=== PATIENT | female | born 1970 | race African-American/Black ===

== ENCOUNTER 2024-07-24 15:48 | Observation (INO) | payer OTHER ==
[2024-07-24 15:57] VITALS: BMI 58.2
[2024-07-24] MEDS ORDERED: predniSONE 10 MG TABLET (UD) ONE (16:21)
[2024-07-24] MEDS ORDERED: ALBUTEROL SO4 2.5/IPRATROPIUM 0.5 INH SOL 3 ML VIAL.NEB. NEB ONE (16:21)
[2024-07-24] MEDS: ALBUTEROL SO4 2.5/IPRATROPIUM 0.5 INH SOL 3 ML VIAL.NEB. NEB ONE (16:27)
[2024-07-24] MEDS ORDERED: predniSONE 20 MG TABLET (UD) ONE (16:27)
[2024-07-24] MEDS: predniSONE 20 MG TABLET (UD) PO ONE (16:27)
[2024-07-24 17:15] LABS: ABSOLUTE IMMATURE GRANULOCYTES 0.03 x10^3/uL (0.0-0.031); BASOPHILS # 0.04 x10^3/uL (0.01-0.08); EOSINOPHIL % 9.2 % (0.7-5.8); EOSINOPHILS # 0.92 x10^3/uL (0.04-0.36); HEMATOCRIT 41.2 % (34.1-44.9); MCHC 29.1 g/dl (32.2-35.5); MEAN CELL VOLUME 83.6 fl (79.4-94.8); MEAN PLT VOLUME 10.4 fl (9.4-12.3); MONOCYTE # 0.73 x10^3/uL (0.24-0.86); MONOCYTE % 7.3 % (4.7-12.5); PLATELET COUNT 207 x10^3/uL (182-369); RDW 18.9 % (12.3-16.6)
[2024-07-24] MEDS: predniSONE 10 MG TABLET (UD) PO ONE (17:27)
[2024-07-24 17:32] LABS: VENOUS BASE EXCESS 3.6 mmol/L (-2-2); VENOUS O2 SATURATION 66.9 % (70-80); VENOUS PCO2 54.3 mmHg (38-52); VENOUS PH 7.363 (7.310-7.410)
[2024-07-24 17:44] LABS: CHLORIDE 104 mmol/L (98-107); SODIUM 136 mmol/L (136-145)
[2024-07-24 17:46] LABS: ALBUMIN 3.1 g/dl (3.4-5.0); BLOOD UREA NITROGEN 11.1 mg/dL (7-18); CALCIUM 9.6 mg/dL (8.5-10.1); CO2 31 mmol/L (21-32); MAGNESIUM 2.1 mg/dL (1.8-2.4)
[2024-07-24 17:47] LABS: GLUCOSE,RANDOM 97 mg/dL (74-106)
[2024-07-24 17:49] LABS: ANION GAP 1 mmol/L (4-13); POTASSIUM 8.8 mmol/L (3.5-5.1)
[2024-07-24 17:50] LABS: CREATININE 0.7 mg/dL (0.55-1.3)
[2024-07-24 17:51] LABS: BILIRUBIN,TOTAL 0.3 mg/dL (0.2-1)
[2024-07-24 17:52] LABS: ALK PHOS 80 U/L (45-117)
[2024-07-24 17:54] LABS: N-TERMINAL BNP 56.4 pg/ml (5-125)
[2024-07-24 17:57] LABS: SGOT/AST 182 U/L (15-37); SGPT/ALT 51 U/L (13-61)
[2024-07-24] MEDS ORDERED: ALBUTEROL SO4 0.083% IH SOL 2.5 MG/3 ML VIAL.NEB. NEB ONE (18:14)
[2024-07-24] MEDS: ALBUTEROL SO4 0.083% IH SOL 2.5 MG/3 ML VIAL.NEB. NEB ONE (18:18)
[2024-07-24 19:00] LABS: POTASSIUM 3.8 mmol/L (3.5-5.1)
[2024-07-24 19:02] LABS: CALCIUM 9.7 mg/dL (8.5-10.1)
[2024-07-24 19:03] LABS: BLOOD UREA NITROGEN 11.4 mg/dL (7-18)
[2024-07-24 19:06] LABS: CREATININE 0.6 mg/dL (0.55-1.3)
[2024-07-24] MEDS ORDERED: MAGNESIUM SULFATE IN WATER 2 GM/50 ML IVPB IVPB ONE (20:08)
[2024-07-24] MEDS: MAGNESIUM SULFATE IN WATER 2 GM/50 ML IVPB IVPB ONE (20:19)
[2024-07-24] MEDS ORDERED: ALBUTEROL SO4 0.083% IH SOL 2.5 MG/3 ML VIAL.NEB. NEB PRN (21:26)
[2024-07-24] MEDS ORDERED: ATORVASTATIN CA 20 MG TABLET (FP) ONE (22:24)
[2024-07-24] MEDS ORDERED: ENOXAPARIN NA (PORCINE) 40 MG/0.4 ML DISP.SYRIN SQ ONE (22:24)
[2024-07-24] MEDS: ENOXAPARIN NA (PORCINE) 30 MG/0.3 ML DISP.SYRIN SQ SCH (22:29)
[2024-07-24] MEDS: ATORVASTATIN CA 20 MG TABLET (FP) PO SCH (22:29)
[2024-07-24] MEDS ORDERED: MONTELUKAST NA 10 MG TABLET ONE (23:41)
[2024-07-24] MEDS ORDERED: methylPREDNISolone NA SUCC 40 MG/1 ML VIAL ONE (23:41)
[2024-07-25] MEDS: MONTELUKAST NA 10 MG TABLET PO ONE (00:34)
[2024-07-25] MEDS: methylPREDNISolone NA SUCC 40 MG/1 ML VIAL IVPUSH SCH (00:35)
[2024-07-25] MEDS: BUDESONIDE/FORMETEROL FUMARATE 160/4.5 mcg INHALER IH SCH ×2 (00:54→21:41)
[2024-07-25] MEDS ORDERED: ALBUTEROL SO4 2.5/IPRATROPIUM 0.5 INH SOL 3 ML VIAL.NEB. NEB ONE (02:10)
[2024-07-25] MEDS: ALBUTEROL SO4 2.5/IPRATROPIUM 0.5 INH SOL 3 ML VIAL.NEB. NEB ONE (02:11)
[2024-07-25] MEDS: INSULIN ASPART SLIDING SCALE (NOVOLOG) 1 VIAL SQ SCH (06:26)
[2024-07-25] MEDS: ALBUTEROL SO4 2.5/IPRATROPIUM 0.5 INH SOL 3 ML VIAL.NEB. NEB SCH (07:55)
[2024-07-25] MEDS ORDERED: methylPREDNISolone NA SUCC 40 MG/1 ML VIAL IVPUSH SCH (10:00)
[2024-07-25] MEDS ORDERED: predniSONE 20 MG TABLET (UD) PO SCH (10:00)
[2024-07-25 10:10] LABS: POTASSIUM 4.6 mmol/L (3.5-5.1)
[2024-07-25 10:11] LABS: CALCIUM 10.2 mg/dL (8.5-10.1)
[2024-07-25 10:12] LABS: BLOOD UREA NITROGEN 10.3 mg/dL (7-18); MAGNESIUM 2.2 mg/dL (1.8-2.4)
[2024-07-25 10:15] LABS: CREATININE 0.7 mg/dL (0.55-1.3)
[2024-07-25] MEDS: LOSARTAN POTASSIUM 25 MG TABLET PO SCH (10:15)
[2024-07-25] MEDS: LORATADINE 10 MG TABLET PO SCH (10:16)
[2024-07-25] MEDS ORDERED: metFORMIN HCL 500 MG TABLET (FP) PO SCH (18:00)
[2024-07-25] MEDS: MONTELUKAST NA 10 MG TABLET PO SCH (21:40)
[2024-07-25] MEDS: guaiFENesin 200 MG/10 ML 10 ML UNIT-DOSE CUPS PO PRN (23:14)
[2024-07-25] MEDS: ACETAMINOPHEN 325 MG TABLET (FP) PO PRN (23:15)
[2024-07-26 08:10] LABS: POTASSIUM 4.8 mmol/L (3.5-5.1)
[2024-07-26 08:14] LABS: BLOOD UREA NITROGEN 20.9 mg/dL (7-18)
[2024-07-26 08:15] LABS: MAGNESIUM 2.4 mg/dL (1.8-2.4)
[2024-07-26 08:17] LABS: CALCIUM 10.1 mg/dL (8.5-10.1)
[2024-07-26 08:18] LABS: CREATININE 0.7 mg/dL (0.55-1.3)
[2024-07-26 11:17] VITALS: RESP 18
[2024-07-26 15:45] VITALS: BP 121/54; PULSE 81; TEMP 97.5
[2024-07-26] MEDS ORDERED: ENOXAPARIN NA (PORCINE) 40 MG/0.4 ML DISP.SYRIN SQ SCH (22:00)
== END 2024-07-26 19:22 | disposition home or self-care (01) ==
LOC: JER 15:48 → JERBED 20:12 → J4S 07-25 00:09
PROVIDERS: ADMIT Internal Medicine; ATTEND Student in an Organized Health Care Education/Training Program
PROC: 3E0F7GC Introduction of Other Therapeutic Substance into Respiratory Tract, Via Natural or Artificial Opening (ICD-10-PCS; principal; 2024-07-24)
PROC: 3E023GC Introduction of Other Therapeutic Substance into Muscle, Percutaneous Approach (ICD-10-PCS; 2024-07-24)
PROC: 3E033GC Introduction of Other Therapeutic Substance into Peripheral Vein, Percutaneous Approach (ICD-10-PCS; 2024-07-24)
DX: J96.01 Acute respiratory failure with hypoxia (principal); E66.01 Morbid (severe) obesity due to excess calories; Z86.16 Personal history of COVID-19; E11.9 Type 2 diabetes mellitus without complications; I10 Essential (primary) hypertension; R00.0 Tachycardia, unspecified; Z88.8 Allergy status to other drugs, medicaments and biological substances
CPT/HCPCS: 0241U-QW; 36415; 71045-TC-FY; 80048; 80053; 82803; 82962; 83735; 83880; 84484; 85025; 93005; 93010; 93306-TC; 94150; 94640; 96365; 96372; 96375; 99285-25; G0378

== ENCOUNTER 2024-10-27 12:35 | Emergency (ER) | payer OTHER ==
[2024-10-27] MEDS: ALBUTEROL SO4 2.5/IPRATROPIUM 0.5 INH SOL 3 ML VIAL.NEB. NEB ONE (13:15)
[2024-10-27] MEDS: DEXAMETHASONE SOD PHOSPHATE 10 MG/1 ML VIAL IVPB ONE (13:35)
[2024-10-27 13:39] VITALS: TEMP 98; BMI 54.8
[2024-10-27] MEDS: MAGNESIUM SULFATE IN WATER 2 GM/50 ML IVPB IVPB ONE (13:40)
[2024-10-27 13:47] LABS: ABSOLUTE IMMATURE GRANULOCYTES 0.02 x10^3/uL (0.0-0.031); BASOPHILS # 0.04 x10^3/uL (0.01-0.08); EOSINOPHIL % 4.8 % (0.7-5.8); EOSINOPHILS # 0.40 x10^3/uL (0.04-0.36); MCHC 29.2 g/dl (32.2-35.5); MEAN CELL VOLUME 85.9 fl (79.4-94.8); MEAN PLT VOLUME 11.7 fl (9.4-12.3); MONOCYTE # 0.62 x10^3/uL (0.24-0.86); MONOCYTE % 7.4 % (4.7-12.5); RDW 19.2 % (12.3-16.6)
[2024-10-27 13:52] LABS: BG HCT 41.0 % (32.4-45.2); VENOUS BASE EXCESS 3.4 mmol/L (-2-2); VENOUS O2 SATURATION 80.6 % (70-80); VENOUS PCO2 59.9 mmHg (38-52); VENOUS PH 7.331 (7.310-7.410)
[2024-10-27 14:39] VITALS: BP 139/79; PULSE 78; RESP 18
[2024-10-27 15:08] LABS: GLUCOSE,RANDOM 103.0 mg/dL (74-106); TOT PROT 7.5 g/dl (6.4-8.2)
[2024-10-27 15:09] LABS: CO2 27.0 mmol/L (21-32)
[2024-10-27 15:10] LABS: ALK PHOS 79.0 U/L (40-150)
[2024-10-27 15:13] LABS: CREATININE 0.51 mg/dL (0.55-1.3); SGOT/AST 50.0 U/L (5-34); SGPT/ALT 27.0 U/L (0-55)
[2024-10-27 16:57] LABS: HCV DIAGNOSTIC IN-HOUSE W/RFLX NON-REACTIVE (NONREACTIVE); HIV INTERPRETATION NEGATIVE (NEGATIVE)
== END 2024-10-27 15:34 | disposition home or self-care (01) ==
LOC: JER 12:35
PROC: 3E033GC Introduction of Other Therapeutic Substance into Peripheral Vein, Percutaneous Approach (ICD-10-PCS; principal; 2024-10-27)
PROC: 3E033GC Introduction of Other Therapeutic Substance into Peripheral Vein, Percutaneous Approach (ICD-10-PCS; 2024-10-27)
PROC: 3E0337Z Introduction of Electrolytic and Water Balance Substance into Peripheral Vein, Percutaneous Approach (ICD-10-PCS; 2024-10-27)
DX: J45.901 Unspecified asthma with (acute) exacerbation (principal); R06.02 Shortness of breath; R05.9 Cough, unspecified; R09.81 Nasal congestion; R06.03 Acute respiratory distress
CPT/HCPCS: 36415; 71045-TC-FY; 80053; 82803; 85025; 86803; 87389; 93005; 93010; 99285-25; J1100